=== PATIENT | male | born 1935 | race Two or more races ===

== ENCOUNTER → 2019-03-26 | Outpatient (CLI) | payer OTHER | END | disposition home or self-care (01) | LOC: RAD 15:08 | DX: M25.551 Pain in right hip (principal) ==

== ENCOUNTER 2021-10-04 09:48 | Outpatient (CLI) | payer OTHER | END 2021-10-04 09:58 | disposition home or self-care (01) | LOC: SONOGRAMA 09:48 | PROVIDERS: ATTEND Orthopaedic Surgery | DX: M25.551 Pain in right hip (principal); M25.552 Pain in left hip ==